=== PATIENT | female | born 1980 | race Caucasian/White ===

== ENCOUNTER 2018-06-06 11:47 | Observation (INO) ==
--- NOTE | 2018-06-06 13:08 | ERNOTE ---
Abdominal HPI - Narrative Date of Service: 06/06/18 - General Chief Complaint: Abdominal Pain Time Seen by Provider: 06/06/18 12:27 Source: patient, RN notes reviewed, past records Exam Limitations: no limitations - Immun/Allergies/Home Medications Immunizatons: IMMUNIZATION HX Immunizations Up to Date Yes History of Influenza Vaccine Yes Hx Pneumococcal Vaccination No Allergies/Adverse Reactions: Allergies No Known Drug Allergies Allergy (Verified 06/06/18 12:22) Home Medications: HOME MEDICATIONS medroxyprogesterone 10 mg tablet 20 mg PO DAILY #15 tab 06/06/18 [Last Taken Unknown] - History of Present Illness Narrative: Mikie is a 37 year old female who presents to the ED for heavy vaginal bleeding. She had a D&C just over a month ago. She had a normal period 2 weeks later. She began bleeding again 2 days ago. It became very heavy with a lot more cramping around 0400 today. She has saturated 6 pads in the past 7 hours. [facility] A nurse attempted to call her back, but she did not answer the phone. The police were then sent to her house for a well-fare check. She reports that the police woke her up. She thought she had just fallen asleep but she apparently passed out. She was then directed to come here for evaluation. Date (Duration): 06/06/18 Time (Timing): 04:00 Timing: getting worse Quality: moderate, cramping Activities at Onset: sleep Associated Symptoms: Present: fatigue, syncope. Absent: fever/chills, nausea, vomiting Prior Abdominal Problems: Present: similar symptoms Prior Treatment: Present: recently seen Review of Systems - Review of Systems Constitutional: Present: fatigue. Absent: recent illness, fever, chills EYE: Present: no symptoms reported ENT: Present: no symptoms reported Respiratory: Absent: shortness of breath, cough Cardiology: Present: syncope. Absent: chest pain, palpitations Gastrointestinal/Abdominal: Absent: nausea, vomiting Genitourinary: Present: no symptoms reported Musculoskeletal: Present: no symptoms reported Skin: Absent: rash, lesions Neurological: Present: dizziness/light-headedness. Absent: headache Endocrine: Present: no symptoms reported Hematologic/Lymphatic: Absent: easy bruising, easy bleeding Psych: Present: no symptoms reported Medical History (Updated 05/14/18 @ 10:44 by Eddie Seo DO) Endometrial polyp (Resolved) Menorrhagia with irregular cycle (Resolved) Dysmenorrhea (Resolved) Endometrial thickening on ultrasound (Acute) Body piercing Onset Date: Unknown Migraine Onset Date: Unknown Obesity Onset Date: Unknown Tattoos Onset Date: Unknown Anemia Onset Date: ~2011 2011 & 2013-w/pregnancies Ankle fracture Onset Date: ~1993 right w/13 surgeries to repair/internal fixation Febrile seizures Onset Date: Unknown until the age of 1/none since. Intestinal infection due to campylobacter Onset Date: ~1999 Small intestine infection-tx'd w/antibiotic. No problems since. Kidney infection Onset Date: Unknown 2 episodes Staphylococcus aureus bacteremia Onset Date: ~1999 right ankle UTI (urinary tract infection) Onset Date: Unknown 2 episodes Surgical History: Surgical History (Updated 05/01/18 @ 14:16 by Henrry Yang RN) History of placement of ear tubes Onset Date: Unknown x3 sets History of arthroplasty of right ankle Onset Date: ~1993 x 13 surgeries History of cholecystectomy Onset Date: ~2009 History of dilation and curettage Onset Date: 05/01/18 History of hysteroscopy Onset Date: 05/01/18 History of oophorectomy Onset Date: ~09/2013 Left-Serosal decidualization w/adhesions and small corpus luteum cyst History of salpingectomy Onset Date: ~2013 Bilateral-Rt paratubal cyst. History of tonsillectomy Onset Date: ~1982 Hx of tubal ligation Onset Date: ~2013 Previous section Onset Date: ~2004 2004-Failure to progress, 2008-Rpt, 2009-Rpt, 2013-Rpt. Family History: Family History (Updated 04/01/18 @ 17:07 by Henrry Yang RN) Mother alcoholic Neuropathy Diabetes Asthma Arthritis Emphysema of lung COPD (chronic obstructive pulmonary disease) Obesity CHF (congestive heart failure) Sister Mental disability Obesity Diabetes Father Celiac disease Diabetes Neuropathy CHF (congestive heart failure) Brother Drowning Club foot Grandmother Myocardial infarction CVA (cerebral vascular accident) Cancer Grandfather Myocardial infarction alcoholic Grandfather Myocardial infarction Social History: Preferred Language Malawian Do you have any pentecostalism or No cultural preference? Smoking Status Never smoker Have you smoked in the past 12 No months Do you dip or chew tobacco No Alcohol Use occasionally Drug Use none (Last Updated 05/14/18 @ 10:45 by dEdie Seo DO) No Social History Section defined Physical Exam - Physical Exam General Appearance: Present: alert, no apparent distress, obese Head Exam: Present: normal inspection Eye Exam: Normal inspection: bilateral Neck: Present: normal inspection, nontender, supple, full range of motion Respiratory: Present: no respiratory distress, normal breath sounds, no accessory muscle use, lungs clear Cardiovascular/Chest: Present: regular rate, rhythm, no murmur, normal peripheral pulses Gastrointestinal/Abdominal: Present: soft, tenderness - diffuse, distended - morbidly obese. Absent: guarding, rebound Pelvic Exam: Present: active bleeding - moderate Extremity Exam: Present: normal inspection, normal range of motion Neurological Exam: Present: alert, oriented, normal mood/affect, no motor/sensory deficits Skin Exam: Present: normal color, warm/dry Progress - Results and Orders Patient's Lab Results:: I have reviewed the patient's lab results. - Vital Signs Patient's Vital Signs:: I have reviewed the patient's vital signs. Vital Signs: Vital Signs 06/06/18 12:18 Temperature 36.7 C Pulse Rate 86 Respiratory Rate 15 Blood Pressure 180/88 H O2 Sat by Pulse Oximetry 97 - Progress/Reassessment Chief Complaint: Abdominal Pain Progress:: Unchanged Progress Note-Subjective: 06/06/18 15:23 The patient was orthostatic and continues to have cramping. She does not wish to take anything for pain. Her bleeding has slowed slightly - the pad she was wearing from [address] Seo was contacted and he is planning to take the patient to the OR. Patient is in agreement with plan. 06/06/18 16:19 Patient is pacing and appears uncomfortable but continues to decline any pain medication. 06/06/18 16:47 Dr. Seo in to see patient. To go to OR for hysterectomy. Departure Clinical Impression: Abnormal uterine bleeding - Departure Disposition: Still a patient Condition: Stable Referrals: Eddie Seo DO [Staff Physician] -
[2018-06-06 13:23] LABS: Hematocrit 37.1 % (37.0-47.0); Hemoglobin 11.7 gm/dL (12.5-16.0); Mean Corpuscular Hemoglobin 24.3 pg (27-31); Mean Corpuscular Hgb Conc 31.5 g/dl (32-36); Mean Platelet Volume 9.5 fl (8-12.5); Neutrophil # 6.5 K/mm3 (1.3-6.0); Neutrophil % 71.3 % (42-75.0); Platelet Count 264 K/mm3 (150-450); Red Blood Count 4.82 M/mm3 (4.2-5.4); White Blood Count 9.1 K/mm3 (4.0-10.5)
[2018-06-06 13:37] LABS: Albumin * 3.2 gm/dl (3.4-5.0); Anion Gap 12.4 mmol/L (6.8-13.8); BUN/Creatinine Ratio 10.6 (9.0-21.6); Bilirubin, Total 0.3 mg/dL (0.0-1.1); Calcium * 8.7 mg/dL (7.9-10.9); Carbon Dioxide 27.4 mmol/L (24-32.6); Potassium 3.8 mmol/L (3.4-4.6); Total Protein 6.7 gm/dL (6.2-8.2)
[2018-06-06 15:32] LABS: INR 1.01 INR (0.92-1.08); Partial Thrombolplastin Time 22.8 Seconds (24-32)
--- NOTE | 2018-06-06 15:54 | ANES ---
Anesthesia Pre Procedure Eval Vitals/Labs: Last Vital Signs Temp 36.7 C 06/06/18 12:18 Pulse 93 06/06/18 14:20 Resp 15 06/06/18 12:18 BP 180/88 H 06/06/18 12:18 Pulse Ox 97 06/06/18 12:18 HOME MEDICATIONS medroxyprogesterone 10 mg tablet 20 mg PO DAILY #15 tab 06/06/18 [Last Taken Unknown] Allergies/Adverse Reactions: Allergies Allergy/AdvReac Type Severity Reaction Status Date / Time No Known Drug Allergies Allergy Verified 06/06/18 12:22 - Planned Procedure Planned Procedure: bleeding heavy after d&C, TVH Medication List Reviewed:: Yes Allergies Verified: Yes Medical History (Updated 06/06/18 @ 15:28 by Xuan Fernandez NP) Endometrial polyp (Resolved) Menorrhagia with irregular cycle (Resolved) Dysmenorrhea (Resolved) Endometrial thickening on ultrasound (Acute) Body piercing Onset Date: Unknown Migraine Onset Date: Unknown Obesity Onset Date: Unknown Tattoos Onset Date: Unknown Anemia Onset Date: ~2011 2011 & 2013-w/pregnancies Ankle fracture Onset Date: ~1993 right w/13 surgeries to repair/internal fixation Febrile seizures Onset Date: Unknown until the age of 1/none since. Intestinal infection due to campylobacter Onset Date: ~1999 Small intestine infection-tx'd w/antibiotic. No problems since. Kidney infection Onset Date: Unknown 2 episodes Staphylococcus aureus bacteremia Onset Date: ~1999 right ankle UTI (urinary tract infection) Onset Date: Unknown 2 episodes Surgical History (Updated 05/01/18 @ 14:16 by Henrry Yang RN) History of placement of ear tubes Onset Date: Unknown x3 sets History of arthroplasty of right ankle Onset Date: ~1993 x 13 surgeries History of cholecystectomy Onset Date: ~2009 History of dilation and curettage Onset Date: 05/01/18 History of hysteroscopy Onset Date: 05/01/18 History of oophorectomy Onset Date: ~09/2013 Left-Serosal decidualization w/adhesions and small corpus luteum cyst History of salpingectomy Onset Date: ~2013 Bilateral-Rt paratubal cyst. History of tonsillectomy Onset Date: ~1982 Hx of tubal ligation Onset Date: ~2013 Previous section Onset Date: ~2004 2004-Failure to progress, 2008-Rpt, 2009-Rpt, 2013-Rpt. Family History (Updated 04/01/18 @ 17:07 by Henrry Yang RN) Mother CHF (congestive heart failure) Obesity COPD (chronic obstructive pulmonary disease) Emphysema of lung Arthritis Asthma Diabetes Neuropathy alcoholic Sister Diabetes Obesity Mental disability Father CHF (congestive heart failure) Neuropathy Diabetes Celiac disease Brother Club foot Drowning Grandmother Cancer CVA (cerebral vascular accident) Myocardial infarction Grandfather alcoholic Myocardial infarction Grandfather Myocardial infarction - Family Anesthesia History Family History:: no untoward family reactions to anesthesia - Airway/Neck/Teeth Teeth Condition: intact Denture Type: None Neck Exam: limited range of motion Mallampatti Score: 2 Thyromental (T-M) distance: > 6 cm Mandibulo Hyoid distance: > 3 cm - Respiratory Respiratory Physical: lungs clear Smoking Status: Never smoker Sleep Apnea currently treated: No Sleep Apnea by current assessment: No - Cardiovascular Tolerate Activity: Fair Heart Sounds: S1 & S2, Regular - Anesthesia Assessment and Plan ASA Class: PS, III, E Anesthesia Type Plan: General ET Planned difficult intubation/equipment available: Yes
--- NOTE | 2018-06-06 16:35 | HP ---
Chief Complaint - Chief Complaint Date of Service: 06/06/18 Time of Service: 16:30 Chief Complaint: heavy vaginal bleeding History of Present Illness: 37 yo with history of heavy painful bleeding underwent hysteroscopy with D&C/polypectomy last month. She began having heavy vaginal bleeding today around 0400, soaking through 1 pad/hr througout the day. She apparently had a syncopal episode earlier today and is orthostatic/symptomatic with position changes. Her labs are OK for now, but will probably show her blood loss within the next 24h. She is done having kids (had a tubal ligation) and desires definitive treatment of her MMR. Medical History (Updated 06/06/18 @ 16:58 by Eddie Seo DO) Endometrial polyp (Resolved) Menorrhagia with irregular cycle (Acute) Dysmenorrhea (Resolved) Endometrial thickening on ultrasound (Acute) Body piercing Onset Date: Unknown Migraine Onset Date: Unknown Obesity Onset Date: Unknown Tattoos Onset Date: Unknown Anemia Onset Date: ~2011 2011 & 2013-w/pregnancies Ankle fracture Onset Date: ~1993 right w/13 surgeries to repair/internal fixation Febrile seizures Onset Date: Unknown until the age of 1/none since. Intestinal infection due to campylobacter Onset Date: ~1999 Small intestine infection-tx'd w/antibiotic. No problems since. Kidney infection Onset Date: Unknown 2 episodes Staphylococcus aureus bacteremia Onset Date: ~1999 right ankle UTI (urinary tract infection) Onset Date: Unknown 2 episodes Surgical History: Surgical History (Updated 06/06/18 @ 16:35 by Eddie Seo DO) History of placement of ear tubes Onset Date: Unknown x3 sets History of arthroplasty of right ankle Onset Date: ~1993 x 13 surgeries History of cholecystectomy Onset Date: ~2009 History of dilation and curettage Onset Date: 05/01/18 History of hysteroscopy Onset Date: 05/01/18 History of oophorectomy Onset Date: ~09/2013 Left-Serosal decidualization w/adhesions and small corpus luteum cyst History of salpingectomy Onset Date: ~2013 Bilateral-Rt paratubal cyst. History of tonsillectomy Onset Date: ~1982 Hx of tubal ligation Onset Date: ~2013 Previous section Onset Date: ~2004 2004-Failure to progress, 2008-Rpt, 2009-Rpt, 2013-Rpt. Family History: Family History (Updated 04/01/18 @ 17:07 by Henrry Yang RN) Mother CHF (congestive heart failure) Obesity COPD (chronic obstructive pulmonary disease) Emphysema of lung Arthritis Asthma Diabetes Neuropathy alcoholic Sister Diabetes Obesity Mental disability Father CHF (congestive heart failure) Neuropathy Diabetes Celiac disease Brother Club foot Drowning Grandmother Cancer CVA (cerebral vascular accident) Myocardial infarction Grandfather alcoholic Myocardial infarction Grandfather Myocardial infarction Social History: Preferred Language Singaporean Do you have any caodaism or No cultural preference? Smoking Status Never smoker Have you smoked in the past 12 No months Do you dip or chew tobacco No Alcohol Use occasionally Drug Use none (Last Updated 05/14/18 @ 10:45 by Eddie Seo DO) No Social History Section defined Review Of Systems (GEN) - Review of Systems Generalized/Overall Review: Present: Weakness, Fatigue. Absent: Chills, Fever EENTM: Present: No Symptoms Reported Respiratory: Present: No Symptoms Reported Cardiac: Present: Syncope Abdominal: Present: Abdominal Pain - cramping Genitourinary: Present: Other - heavy vaginal bleeding Musculoskeletal: Present: No Symptoms Reported Neurological: Present: Weakness Skin: Present: No Symptoms Reported Endocrine: Present: No Symptoms Reported Immunizations: IMMUNIZATION HX Immunizations Up to Date Yes History of Influenza Vaccine Yes Hx Pneumococcal Vaccination No Allergies/Adverse Reactions: Allergies Allergy/AdvReac Type Severity Reaction Status Date / Time No Known Drug Allergies Allergy Verified 06/06/18 12:22 Home Medications: HOME MEDICATIONS medroxyprogesterone 10 mg tablet 20 mg PO DAILY #15 tab 06/06/18 [Last Taken Unknown] Exam - Exam Vital Signs: Vital Signs - Last Taken Temp 36.7 C 06/06/18 12:18 Pulse 93 06/06/18 14:20 Resp 15 06/06/18 12:18 BP 180/88 H 06/06/18 12:18 Pulse Ox 97 06/06/18 12:18 Constitutional: Present: Alert, Oriented x3, Cooperative, Mild distress, Morbidly obese Breasts: Present: Exam deferred Respiratory: Present: lungs clear, no respiratory distress Cardiovascular/Chest: Present: regular rate, rhythm, edema Abdomen: Present: soft, nontender, no rebound tenderness. Absent: guarding /Rectal: Present: Other - moderate amount of vaginal bleeding Extremity: Present: no calf tenderness Skin Exam: Present: cool/dry, pallor Neurologic: Present: alert, normal mood/affect, oriented x 3 Appearance: Present: appropriate appearance, appropriate insight Eye contact: Present: cooperative, good eye contact Thoughts: Present: normal thought pattern Diagnostic Studies: Abnormal Lab Results 06/06/18 06/06/18 06/06/18 Range/Units 13:15 13:15 13:15 Hgb 11.7 L (12.5-16.0) gm/dL MCV 77.0 L (78-100) fl MCH 24.3 L (27-31) pg MCHC 31.5 L (32-36) g/dl RDW 15.0 H (11.5-14.0) % Neutrophils # 6.5 H (1.3-6.0) K/mm3 PTT (Mare) 22.8 L (24-32) Seconds ALT 15 L (19-67) U/L Albumin 3.2 L (3.4-5.0) gm/dl Laboratory Results WBC 9.1 K/mm3 (4.0-10.5) 06/06/18 13:15 RBC 4.82 M/mm3 (4.2-5.4) 06/06/18 13:15 Hgb 11.7 gm/dL (12.5-16.0) L 06/06/18 13:15 Hct 37.1 % (37.0-47.0) 06/06/18 13:15 MCV 77.0 fl (78-100) L 06/06/18 13:15 MCH 24.3 pg (27-31) L 06/06/18 13:15 MCHC 31.5 g/dl (32-36) L 06/06/18 13:15 RDW 15.0 % (11.5-14.0) H 06/06/18 13:15 Plt Count 264 K/mm3 (150-450) 06/06/18 13:15 MPV 9.5 fl (8-12.5) 06/06/18 13:15 Immature Gran % (Auto) 0.30 % (0.001-0.429) 06/06/18 13:15 Immature Gran # (Auto) 0.03 K/mm3 (0.000-0.0310) 06/06/18 13:15 71.3 % (42-75.0) 06/06/18 13:15 22.1 % (20-51) 06/06/18 13:15 4.7 % (0.0-9) 06/06/18 13:15 1.2 % (0.0-3.0) 06/06/18 13:15 0.4 % (0.0-1.0) 06/06/18 13:15 Nucleated RBC % 0.0 k/mm3 (0-1) 06/06/18 13:15 6.5 K/mm3 (1.3-6.0) H 06/06/18 13:15 2.00 k/mm3 (1.5-3.5) 06/06/18 13:15 0.4 k/mm3 (0.0-1.0) 06/06/18 13:15 0.1 k/mm3 (0.0-0.7) 06/06/18 13:15 Absolute Basophils 0.0 k/mm3 (0.0-0.1) 06/06/18 13:15 PT 10.0 Seconds (9.1-10.7) 06/06/18 13:15 INR (Anticoag Therapy) 1.01 INR (0.92-1.08) 06/06/18 13:15 PTT (Mare) 22.8 Seconds (24-32) L 06/06/18 13:15 Sodium 139 mmol/L (132-142) 06/06/18 13:15 139 mmol/L (130-142) 06/06/18 13:15 Potassium 3.8 mmol/L (3.4-4.6) 06/06/18 13:15 Chloride 103 mmol/L (97-106) 06/06/18 13:15 Carbon Dioxide 27.4 mmol/L (24-32.6) 06/06/18 13:15 12.4 mmol/L (6.8-13.8) 06/06/18 13:15 BUN 9 mg/dL (3-23) 06/06/18 13:15 0.85 mg/dL (0.4-1.4) 06/06/18 13:15 Est GFR (Non-Af Amer) 79 mL/min (60-130) D 06/06/18 13:15 10.6 (9.0-21.6) 06/06/18 13:15 93 mg/dL (70-110) 06/06/18 13:15 Calcium 8.7 mg/dL (7.9-10.9) 06/06/18 13:15 Calcium Adj for Albumin 9.0 mg/dL (8.4-10.2) 06/06/18 13:15 0.3 mg/dL (0.0-1.1) 06/06/18 13:15 AST 14 U/L (0-48) 06/06/18 13:15 ALT 15 U/L (19-67) L 06/06/18 13:15 72 U/L (50-170) 06/06/18 13:15 6.7 gm/dL (6.2-8.2) 06/06/18 13:15 3.2 gm/dl (3.4-5.0) L 06/06/18 13:15 Serum HCG, Qual Negative (NEGATIVE) 06/06/18 13:15 Blood Type B Positive 06/06/18 13:15 Antibody Screen Negative 06/06/18 13:15 Assessment/Plan - Assessment/Plan (1) Menorrhagia with irregular cycle Assessment: r/b/a to total vaginal hysterectomy with possible LAVH or ANDRIA, possible b/l salpingectomy and/or oophorectomy, cystoscopy discussed with patient. All questions answered. Will proceed with surgery. Problem: Acute (2) Morbid (severe) obesity due to excess calories Problem: Chronic (3) Elevated blood pressure reading Problem: Acute
[2018-06-06] MEDS ORDERED: RINGER'S SOLUTION,LACTATED 1,000 ML IV PRN ×2 (17:10→18:52)
[2018-06-06] MEDS ORDERED: ceFAZolin SODIUM/DEXTROSE,ISO 2 GM/50 ML BAG IV SCH (17:25)
[2018-06-06] MEDS ORDERED: LIDOCAINE HCL/EPINEPHRINE 30 ML VIAL IJ ONE (18:25)
[2018-06-06] MEDS ORDERED: IBUPROFEN 800 MG TABLET PO PRN ×3 (18:52→20:02)
[2018-06-06] MEDS ORDERED: MORPHINE SULFATE 2 MG/ML DISP.SYRIN IV PRN ×2 (18:52→20:02)
[2018-06-06] MEDS ORDERED: oxyCODONE HCL/ACETAMINOPHEN 1 TAB TABLET PO PRN ×2 (18:52→20:02)
--- NOTE | 2018-06-06 18:55 | ANES ---
Post Anesthesia Discharge - Transfer of Care Transfer of Care handoff given to nurse: Yes - Discharge from PACU Discharge from PACU when meets criteria: Yes - Sleepy, snoring, O2 mask
--- NOTE | 2018-06-06 19:01 | OR ---
Operative Report - Dictated Report Narrative: DATE OF PROCEDURE: 06/06/2018 INDICATIONS: 37-year-old 4 para 4 prior section 4 resents to emergency room with severe menometrorrhagia with orthostatic signs and symptoms. PREOPERATIVE DIAGNOSIS: Severe menorrhagia unresponsive to conservative therapy, morbid obesity with a BMI of 69.3 POSTOPERATIVE DIAGNOSIS: Same PROCEDURE: Total vaginal hysterectomy, Cystoscopy SURGEON: Carlos Seo D.O. BRIM GREASER OPERATOR: OR Staff ANESTHESIA: General ESTIMATED BLOOD LOSS: 250 mL URINE OUTPUT: 300 mL of dark urine FLUID REPLACEMENT: 1500 mL of crystalloid SPECIMEN(S): Uterus and cervix FINDINGS: 10 week size uterus with severe menorrhagia TECHNIQUE: The patient was taken to the operating room and placed in dorsal lithotomy position after adequate general anesthesia was obtained, SCDs placed, and 2 g of Ancef given intravenously. The cervix was grasped with 2 single- tooth tenacula and a paracervical block was given using 1% lidocaine with epinephrine. Posterior colpotomy was performed using Mcgee scissors. A long weighted speculum was placed into the posterior cul-de-sac. Anterior colpotomy was performed with Mcgee scissors and a Bhavesh retractor was placed to retract the bladder. The [employer] Manager and Romero arms were used to hold our Bhavesh and Breisky-Navratil retractors. The bladder pillars were coagulated and transected with the LigaSure device. The right uterosacral ligament was grasped with a curved Felton, transected, and Lev stitch tied. The exact same was done on the other side. The remaining pedicles were then sequentially doubly coagulated and transected distally using the LigaSure device. The uterus was removed in total. Bleeding from the right infundibulopelvic ligament was controlled with the LigaSure device. The vaginal cuff was closed with a series of [id number] 0 Vicryl sutures. Cystoscopy was performed noting urine spurting freely from both ureteral orifices. The bladder was drained and the patient was transferred to postanesthesia care unit in good condition. Sponge, lap, instrument, and needle count were correct x 2. POSTOPERATIVE CONDITION: Good
[2018-06-06] MEDS ORDERED: ONDANSETRON HCL/PF 2 MG/ML VIAL IV PRN ×2 (19:21→20:02)
--- NOTE | 2018-06-06 19:53 | ANES ---
Post Anesthesia Assessment - Vital Signs Vitals: Last Vital Signs Temp 36.4 C 06/06/18 18:50 Pulse 107 H 06/06/18 19:20 Resp 24 H 06/06/18 19:20 BP 176/102 H 06/06/18 19:20 Pulse Ox 94 06/06/18 19:20 Airway Patency: Normal - Mental Status Level Of Consciousness: Awake, Alert, Appropriate - Pain Level Pain Score: 0 - N/V Assessment Nausea/Vomiting Presence: None Dehydration:: No - Additional Notes Comments:: During a conversation with the PACU nurse, the patient stopped talking, closed her eyes and was not responsive. I was called overhead, on arrival I noted the patient was not responsive, EKG was currently in sinus tach, pulse oximeter was mid 90s and the patient was breathing lightly. 100% oxygen was applied per and improved without assist and within short order the patient opened her eyes and asked"what's going on, as they're a democrat in my room?" When asked what she remembered last, she recalled the conversation with the PACU nurse and that she is was suddenly tired and fell asleep. There is no obvious subsequent sequelae other than complaints of a score chest from an apparent sternal rub prior to my arrival. She repeated a similar episode perhaps 10 minutes later completely monitored and, other than a drop of O2 into the 80s, no other changes in vital signs. She will be admitted to overnight with CPAP, I have recommended a sleep study.
[2018-06-06] MEDS ORDERED: METOCLOPRAMIDE HCL 5 MG/ML VIAL IV PRN (20:05)
--- NOTE | 2018-06-06 20:13 | PN ---
Radha Note - Interim Date: 06/06/18 Time: 20:06 Narrative: 06/06/18 20:06 Responded to a CODE BLUE in PACU. Upon arrival found my patient unresponsive. She had normal color and a strong peripheral pulse. Monitors were just taken off and she was in the process of being transferred to the floor when this episode occurred. The PACU nurse stated she was talking to the patient when she suddenly became unresponsive. Patient failed to respond to sternal rub, but within less than a couple minutes became responsive as if awakening from sleep, talking normally without any symptoms other than a sore chest where she experienced the sternal rub. Monitors were reattached to the patient and all vitals appeared stable. Because of this episode, I decided to admit patient for 23 hour observation. While riding her orders she had another similar episode witnessed by anesthesia while monitors were attached. All vitals were stable except pulse ox dropped to low 80s. Anesthesia's impression is that of sleep apnea versus possible narcolepsy. Plan is to keep patient on CPAP and telemetry overnight to assure her well-being. Once discharged patient will be referred to her primary care physician for sleep study/sleep apnea workup.
[2018-06-06] MEDS: oxyCODONE HCL/ACETAMINOPHEN 1 TAB TABLET PO PRN (22:42)
[2018-06-07] MEDS: oxyCODONE HCL/ACETAMINOPHEN 1 TAB TABLET PO PRN (03:07)
[2018-06-07] MEDS ORDERED: RINGER'S SOLUTION,LACTATED 1,000 ML IV PRN (06:00)
[2018-06-07] MEDS ORDERED: ceFAZolin SODIUM/DEXTROSE,ISO 2 GM/50 ML BAG IV PRN (06:00)
--- NOTE | 2018-06-07 12:01 | PN ---
Subjective - Date and Time Seen Date: 06/07/18 Time: 11:55 Subjective Narrative: Since admission to the floor patient has been asymptomatic. She has had no further unresponsive episodes, nausea or vomiting, vaginal bleeding, or signs/symptoms of hypovolemia. Objective - Review of Systems Generalized/Overall Review: Reports: No Symptoms Reported EENTM: Reports: No Symptoms Reported Respiratory: Reports: No Symptoms Reported Cardiac: Reports: No Symptoms Reported Abdominal: Reports: Abdominal Pain - mild menstrual-like cramping Genitourinary Symptoms: Reports: No Symptoms Reported Musculoskeletal Complaints: Reports: No Symptoms Reported Neurological: Reports: No Symptoms Reported Skin: Reports: No Symptoms Reported Endocrine: Reports: No Symptoms Reported - Vitals Vitals: Last Vital Signs Temp 36.6 C 06/07/18 06:30 Pulse 71 06/07/18 10:30 Resp 23 H 06/07/18 10:30 BP 128/78 06/07/18 10:30 Pulse Ox 95 06/07/18 10:30 - Abnormal Lab Findings Abnormal Lab Findings: Abnormal Lab Results 06/06/18 06/06/18 06/06/18 Range/Units 13:15 13:15 13:15 Hgb 11.7 L (12.5-16.0) gm/dL MCV 77.0 L (78-100) fl MCH 24.3 L (27-31) pg MCHC 31.5 L (32-36) g/dl RDW 15.0 H (11.5-14.0) % Neutrophils # 6.5 H (1.3-6.0) K/mm3 PTT (Cross) 22.8 L (24-32) Seconds ALT 15 L (19-67) U/L Albumin 3.2 L (3.4-5.0) gm/dl - EKG/Xray Findings EKG: NSR - Exam Constitutional: Present: Alert, Oriented x3, Cooperative, No distress ENT Exam: Present: hearing grossly normal Breasts: Present: Exam deferred Respiratory: Present: lungs clear, no respiratory distress Cardiovascular/Chest: Present: normal peripheral pulses, regular rate, rhythm, no edema Abdomen: Present: soft, nondistended, no rebound tenderness, obese, tender - mild lower abdomen /Rectal: Present: Exam deferred Extremity: Present: no pedal edema, no calf tenderness Skin Exam: Present: normal color, warm/dry, no cyanosis Neurologic: Present: alert, normal mood/affect, oriented x 3. Absent: abnormal gait, dizzy/light-headedness Appearance: Present: appropriate appearance, appropriate insight Eye contact: Present: cooperative, good eye contact Thoughts: Present: normal thought pattern, normal mood /affect Assessment/Plan Plan Narrative: Discharge to home with routine s/p TVH d/c instructions. F/u with PMD (call today for appt) to assess for narcolepsy and sleep apnea. F/u in 4 wks. - Problems/Diagnosis (1) Menorrhagia with irregular cycle Problem: Resolved (2) Morbid (severe) obesity due to excess calories Problem: Chronic (3) Elevated blood pressure reading Problem: Resolved (4) Unresponsive episode Problem: Resolved Narrative: suspect narcolepsy and sleep apnea
--- NOTE | 2018-06-07 12:14 | DS ---
(1) Menorrhagia with irregular cycle Problem: Resolved (2) Morbid (severe) obesity due to excess calories Problem: Chronic (3) Elevated blood pressure reading Problem: Resolved (4) Unresponsive episode Problem: Resolved Description of Stay: Patient was admitted to surgery from the emergency room for severe menorrhagia with hypovolemic signs and symptoms. She underwent an emergent total vaginal hysterectomy to control bleeding which went uneventfully. In PACU, as patient was in the process of being transferred to the floor she had an unresponsive episode. She was unresponsive to pain, however, she had good color and normal pulse. Another episode occurred several minutes later this time she was hooked to monitors and her sats were noted to drop to 80% with all other vital signs re maining stable. Each episode lasted less than a few minutes with patient becoming completely responsive as if she just awoken from sleep. Once responsive, patient remembers everything up to the instance she became unresponsive. Because of this the patient was kept overnight for prolonged observation on telemetry and pulse oximetry. Vitals remained stable throughout her stay with the exception of occasional drop in O2 sats in the 80 percentile's. She was discharged home the morning after surgery with routine discharge instructions and to follow-up with primary care physician for workup of narcolepsy/sleep apnea. Procedures Performed: see notes below - telemetry, pulse oximetry. Results and Findings: Lab Pending Results 06/06/18 13:15: WBC 9.1, RBC 4.82, Hgb 11.7 L, Hct 37.1, MCV 77.0 L, MCH 24.3 L, MCHC 31.5 L, RDW 15.0 H, Plt Count 264, MPV 9.5, Immature Gran % (Auto) 0.30, Immature Gran # (Auto) 0.03, Neutrophils % 71.3, Lymphocytes % 22.1, Monocytes % 4.7, Eosinophils % 1.2, Basophils % 0.4, Nucleated RBC % 0.0, Neutrophils # 6.5 H, Lymphocytes # 2.00, Monocytes # 0.4, Eosinophils # 0.1, Absolute Basophils 0.0 06/06/18 13:15: Sodium 139, Plasma Sodium 139, Potassium 3.8, Chloride 103, Carbon Dioxide 27.4, Anion Gap 12.4, BUN 9, Creatinine 0.85, Est GFR (Non-Af Amer) 79 D, BUN/Creatinine Ratio 10.6, Random Glucose 93, Calcium 8.7, Calcium Adj for Albumin 9.0, Total Bilirubin 0.3, AST 14, ALT 15 L, Alkaline Phosphatase 72, Total Protein 6.7, Albumin 3.2 L 06/06/18 13:15: Serum HCG, Qual Negative 06/06/18 13:15: Blood Type B Positive, Antibody Screen Negative 06/06/18 13:15: PT 10.0, INR (Anticoag Therapy) 1.01, PTT (Dale) 22.8 L Discharge Location: Home Disposition: Home self-care Condition: Stable Discharge Activity: Other - No heavy lifting or strenuous activity for 6 weeks. No driving till cleared by PMD. Discharge Diet: General/regular food Referrals: Eddie Seo DO [Staff Physician] - Problem Oriented Discharge Instructions to Patient/Family: Vaginal Hysterectomy, Care After [employer] Complete Home Medications List: Complete Home Medication List: Docusate Sodium [Colace] 100 mg PO BID #28 cap 06/06/18 Ferrous Sulfate 325 mg PO DAILY #60 tab 06/06/18 Ibuprofen [Motrin] 200 - 800 mg PO Q6H PRN #100 tab 06/06/18 oxyCODONE HCL/ACETAMINOPHEN [Percocet 5 MG/325 MG] 1 tab PO Q4H PRN #15 tab 06/06/18
[2018-06-07 13:30] VITALS: BP 148/86
== END 2018-06-07 13:30 | disposition home or self-care (01) ==
LOC: ER 11:47 → SUR 16:47 → MS 16:47 → SUR 17:15
PROVIDERS: ADMIT Obstetrics & Gynecology; ATTEND Obstetrics & Gynecology
CPT/HCPCS: 36415; 80053; 84703; 85025; 85610; 85730; 86850; 88307; 94660; 99285; G0378; J2405